=== PATIENT | female | born 2000 | race Caucasian/White ===

== ENCOUNTER 2023-01-03 19:39 | Emergency (ER) | payer OTHER, BC ==
[2023-01-03] MEDS ORDERED: Morphine 4 MG/ML VIAL ONE (20:08)
[2023-01-03] MEDS ORDERED: PROPOFOL 20 ML ONE (20:40)
[2023-01-03 20:56] LABS: BHCG - Serum Negative (NEGATIVE)
[2023-01-03 20:58] LABS: Pregs Control Background? CLEAR/WHITE (CLR/WHITE); Pregs Control Bar Appear? YES (CONTROL BAR)
[2023-01-03] MEDS ORDERED: Ketorolac Tromethamine 30 MG/ML VIAL ONE (22:06)
[2023-01-03] MEDS ORDERED: HYDROcodone/Acetaminophen 5/325 mg Tablet ONE (22:06)
== END 2023-01-03 22:15 | disposition home or self-care (01) ==
LOC: ERS 19:39
DX: S82.851A Displaced trimalleolar fracture of right lower leg, initial encounter for closed fracture (principal); W01.0XXA Fall on same level from slipping, tripping and stumbling without subsequent striking against object, initial encounter; Y93.01 Activity, walking, marching and hiking; Y92.59 Other trade areas as the place of occurrence of the external cause
CPT/HCPCS: 27818; 84703; 96374; 99152; 99153; J1885; J2270; J2704

== ENCOUNTER 2023-01-10 11:51 | Day surgery (SDC) | payer SELFPAY ==
[2023-01-09 11:08] VITALS: BMI 35.6
[2023-01-10] MEDS ORDERED: Bupivacaine PF 0.5% 30 ML VIAL ONE (13:32)
[2023-01-10] MEDS ORDERED: fentaNYL 50 mcg/mL 1 mL Vial ONE ×5 (13:32→16:40)
[2023-01-10] MEDS ORDERED: Midazolam HCl 2 mg/2 ml Vial ONE (13:32)
[2023-01-10] MEDS ORDERED: Lidocaine 1% (PF) 30 ML VIAL ONE (14:08)
[2023-01-10] MEDS ORDERED: CEFAZOLIN 2 GM VIAL ONE (14:15)
[2023-01-10] MEDS ORDERED: Sodium Chloride 0.9% 100 ML ONE (14:15)
[2023-01-10] MEDS ORDERED: Lidocaine 1% PF 5 ML VIAL ONE (14:45)
[2023-01-10] MEDS ORDERED: Ondansetron PF 4 MG/2 ML Vial ONE (14:45)
[2023-01-10] MEDS ORDERED: Dexamethasone 20 MG/5 ML VIAL ONE (14:45)
[2023-01-10] MEDS ORDERED: PROPOFOL 200 MG/20 ML VIAL ONE (14:45)
[2023-01-10] MEDS ORDERED: Bupivacaine HCl 0.5%/Epinephrine 1:200,000/PF 30 ml Vial ONE (14:45)
[2023-01-10] MEDS ORDERED: fentaNYL 50 mcg/mL 1 mL Vial SLOW IVP PRN (14:52)
[2023-01-10] MEDS ORDERED: HYDROcodone/Acetaminophen 10/325 mg Tablet PO PRN ×2 (15:00)
[2023-01-10] MEDS ORDERED: traMADol HCl 50 MG TAB PO PRN ×2 (15:00)
[2023-01-10] MEDS ORDERED: Promethazine HCl 25 MG/ML VIAL IM PRN (15:00)
[2023-01-10] MEDS ORDERED: Zolpidem Tartrate 5 MG TAB PO PRN (15:00)
[2023-01-10] MEDS ORDERED: Ropivacaine 0.2% 550 ML 550 ML NERVE BLCK SCH (15:00)
[2023-01-10] MEDS ORDERED: Ondansetron PF 4 MG/2 ML Vial IVP PRN (15:00)
[2023-01-10] MEDS ORDERED: HYDROcodone/Acetaminophen 5/325 mg Tablet ONE (17:15)
[2023-01-10] MEDS ORDERED: Ketorolac Tromethamine 30 MG/ML VIAL IVP SCH (18:00)
== END 2023-01-10 19:05 | disposition home or self-care (01) ==
LOC: SDC 11:51
PROVIDERS: ATTEND Orthopaedic Surgery
DX: S82.851A Displaced trimalleolar fracture of right lower leg, initial encounter for closed fracture (principal); X58.XXXA Exposure to other specified factors, initial encounter
CPT/HCPCS: A4306; C1713; J1100; J2001; J2250; J2405; J2704; J2795; J3010; J3490; S0020